=== PATIENT | female | born 1970 | race Caucasian/White ===

== ENCOUNTER 2019-09-27 08:26 | Day surgery (SDC) | payer OTHER ==
[~2019-09-27] VITALS: Ht 167.6 cm; Wt 91.2 kg
[2019-09-27] MEDS ORDERED: fentaNYL 0.05 MG/ML VIAL ONE (09:13)
[2019-09-27] MEDS ORDERED: LIDOCAINE 2% 100 MG/5 ML UJET TP ONE (09:13)
[2019-09-27] MEDS ORDERED: MIDAZOLAM 2 MG/2 ML VIAL ONE (09:17)
[2019-09-27] MEDS ORDERED: fentaNYL 0.05 MG/ML VIAL IVP ONE (12:30)
[2019-09-27] MEDS ORDERED: MIDAZOLAM 2 MG/2 ML VIAL IVP ONE (12:30)
== END 2019-09-27 10:10 | disposition home or self-care (01) ==
LOC: MDS 08:26 → MMU 08:27 → MDS 10:10
PROVIDERS: ATTEND Internal Medicine Gastroenterology
DX: Z12.11 Encounter for screening for malignant neoplasm of colon (principal)
CPT/HCPCS: G0121; J2250; J3010